=== PATIENT | female | born 2000 | race Hispanic/Latino ===

== ENCOUNTER 2024-11-01 08:21 | Inpatient (IN) | payer MEDICAID, OTHER, SELFPAY ==
[2024-11-01 08:43] VITALS: BMI 29.4
[2024-11-01] MEDS ORDERED: Lidocaine 1% (PF) 30 ML VIAL SC PRN (10:37)
[2024-11-01] MEDS ORDERED: Ondansetron PF 4 MG/2 ML Vial IVP PRN ×2 (10:37→17:18)
[2024-11-01] MEDS ORDERED: hydrALAZINE 20 MG/ML VIAL SLOW IVP PRN (10:37)
[2024-11-01] MEDS ORDERED: Oxytocin 30 units/NS 500 ML 500 ML IV SCH (10:45)
[2024-11-01 11:58] LABS: Hematocrit 37.8 % (34.9-44.5); Hemoglobin 12.7 g/dL (12.0-15.5); Mean Corpuscular Hemoglobin 29.4 pg (27.0-33.0); Mean Corpuscular Volume 87.5 fL (81.6-98.3); Platelet Count 192 10x3/uL (150-450); Red Blood Cell (RBC) Count 4.32 10x6/uL (3.90-5.03); White Blood Cell (WBC) Count 9.56 10x3/uL (3.5-10.5)
[2024-11-01 12:32] LABS: Hep B Surf Ag - L&D Non-Reactive S/CO (NonReactive)
[2024-11-01 12:34] LABS: Syphilis Antibody Index 0.03 S/CO (<1.00 Non-Reactive)
[2024-11-01] MEDS: Oxytocin 30 units/NS 500 ML 500 ML IV SCH (14:46)
[2024-11-01] MEDS ORDERED: Acetaminophen 325 MG TAB PO PRN (17:18)
[2024-11-01] MEDS ORDERED: diphenhydrAMINE 50 MG/ML VIAL IVP PRN (17:18)
[2024-11-01] MEDS ORDERED: fentaNYL/Ropivacaine Epidural 100 ML ONE (17:21)
[2024-11-01] MEDS ORDERED: Communication Order-Pharmacy FS SCH (17:30)
[2024-11-01] MEDS: fentaNYL 2 mcg/Ropivacaine 0.2% Epidural 100 ML CADD EPIDURAL SCH (17:42)
[2024-11-02] MEDS: Acetaminophen 500 MG TAB PO PRN (02:25)
[2024-11-02] MEDS ORDERED: Milk Of Magnesia 30 ML UDCUP PO PRN (03:53)
[2024-11-02] MEDS ORDERED: Preparation H Ointment 28 GM TUBE PR PRN (03:53)
[2024-11-02] MEDS ORDERED: Ondansetron PF 4 MG/2 ML Vial IVP PRN (03:53)
[2024-11-02] MEDS ORDERED: hydrALAZINE 20 MG/ML VIAL SLOW IVP PRN (03:53)
[2024-11-02] MEDS ORDERED: Benzocaine-Menthol 82.5 ML CAN TOP PRN (03:53)
[2024-11-02] MEDS ORDERED: Boostrix 0.5 ML (Tdap) VIAL (>/=7 yrs of age) IM ONE (03:53)
[2024-11-02] MEDS ORDERED: diphenhydrAMINE 25 MG CAP PO PRN (03:53)
[2024-11-02] MEDS ORDERED: Bisacodyl 10 MG SUPP PR PRN (03:53)
[2024-11-02] MEDS ORDERED: Lanolin Ointment 7 GM TUBE TOP PRN (03:53)
[2024-11-02] MEDS ORDERED: HYDROcodone/Acetaminophen 5/325 mg Tablet PO PRN (03:53)
[2024-11-02] MEDS: Ibuprofen 800 MG TAB PO SCH (06:34)
[2024-11-02] MEDS: Ferrous Sulfate 325 MG TAB PO SCH (07:57)
[2024-11-03 08:59] VITALS: BP 118/56; TEMP 97.7
== END 2024-11-03 16:05 | disposition home or self-care (01) | DRG 807 ==
LOC: CSHLD/OP 08:21 → UNDOADMIN 10:50 → CSHLD 10:50 → CSHPED 11-02 03:33
PROVIDERS: ADMIT Family Medicine; ATTEND Family Medicine
PROC: 10E0XZZ Delivery of Products of Conception, External Approach (ICD-10-PCS; principal; 2024-11-02)
PROC: 0KQM0ZZ Repair Perineum Muscle, Open Approach (ICD-10-PCS; 2024-11-02)
PROC: 10907ZC Drainage of Amniotic Fluid, Therapeutic from Products of Conception, Via Natural or Artificial Opening (ICD-10-PCS; 2024-11-02)
DX: O70.1 Second degree perineal laceration during delivery (principal); Z37.0 Single live birth; Z88.0 Allergy status to penicillin; Z3A.39 39 weeks gestation of pregnancy
CPT/HCPCS: 36416; 51702; 85027; 86780; 86850; 86900; 86901; 87340; 99285; J2590; J7120